=== PATIENT | male | born 1935 | race Caucasian/White ===

== ENCOUNTER 2020-02-25 09:22 | Inpatient (IN) | payer MEDICARE, BC, OTHER ==
[~2020-02-25] VITALS: Ht 180.3 cm; Wt 48.6 kg
[2020-02-25 09:58] LABS: BASO % 0.4 % (0.0-1.0); EOS % 0.1 % (0.0-3.0); HEMATOCRIT 33.9 % (42.0-52.0); LYMPH # 0.7 10^3/uL (1.5-5.0); LYMPH % 6.3 % (24.0-44.0); MEAN CORPUSCULAR HEMOGLOBIN 28.9 pg (27.0-33.0); MEAN CORPUSCULAR HGB CONC 32.4 g/dl (32.0-36.5); MEAN CORPUSCULAR VOLUME 89.2 fl (80.0-96.0); MONO # 0.7 10^3/uL (0.0-0.8); MONO % 6.2 % (0.0-5.0); NEUTROPHILS # 9.1 10^3/uL (1.5-8.5); NEUTROPHILS % 86.2 % (36.0-66.0); PLATELET COUNT, AUTOMATED 368 10^3/uL (150-450); WHITE BLOOD COUNT 10.6 10^3/uL (4.0-10.0)
[2020-02-25 10:10] LABS: VENOUS BASE EXCESS -1.7 (-2.0-2.0); VENOUS HCO3 25.3 MEQ/L (23.0-27.0); VENOUS O2 SATURATION 66.4 % (60.0-80.0); VENOUS PARTIAL PRESSURE CO2 53.1 mmHg (38.0-50.0); VENOUS PARTIAL PRESSURE O2 34.6 mmHg (30.0-50.0); VENOUS PH 7.296 UNITS (7.330-7.430); VENOUS STANDARD HCO3 22.4 MEQ/L; VENOUS TOTAL CO2 26.9 MEQ/L (24.0-28.0)
[2020-02-25 10:15] VITALS: BP 190/82
[2020-02-25] MEDS ORDERED: SERT-141 PO (10:16)
[2020-02-25] MEDS ORDERED: ASPI81TA26 PO (10:16)
[2020-02-25] MEDS ORDERED: VITA500C24 PO (10:16)
[2020-02-25] MEDS ORDERED: IRON65TA2 PO (10:16)
[2020-02-25] MEDS ORDERED: PANT40TA3 PO (10:16)
[2020-02-25] MEDS ORDERED: VITAD1000T PO (10:16)
[2020-02-25] MEDS ORDERED: FINA5TAB2 PO (10:16)
[2020-02-25] MEDS ORDERED: ANOR1AER PO (10:16)
[2020-02-25] MEDS ORDERED: MELA5CAP2 PO (10:16)
[2020-02-25] MEDS ORDERED: AMLO5TAB6 PO (10:16)
[2020-02-25 10:35] LABS: ALBUMIN 3.1 GM/DL (3.2-5.2); BILIRUBIN,DIRECT 0.2 MG/DL (0.0-0.2); BILIRUBIN,TOTAL 0.7 MG/DL (0.2-1.0); THYROID STIMULATING HORMONE 4.04 uIU/ML (0.358-3.740); TOTAL PROTEIN 6.3 GM/DL (6.4-8.2)
--- NOTE | 2020-02-25 11:20 | REP ---
Clinical: Cough and dyspnea. Comparison: None. Findings: Opacity at the right base suggests layering effusion. Trace atelectasis cannot be excluded. Diffuse underlying chronic interstitial changes are suggested. The cardiac silhouette is normal. Surgical clips overlie the superior mediastinum suggesting prior thyroid surgery as well as the upper abdomen suggesting prior gastric bypass surgery and hernia repair. Skeletal structures demonstrate osteopenia and degenerative changes. Impression: Suspected right pleural effusion and atelectasis. Electronically Signed by Jesus Wills MD 02/25/2020 11:11 A
[2020-02-25] MEDS ORDERED: ENOXAPARIN 30MG/0.3ML SYRINGE (J1650 PER 10MG) SC SCH (12:00)
[2020-02-25] MEDS ORDERED: amLODIPine 5 MG TAB PO ONE (12:00)
[2020-02-25] MEDS ORDERED: NS 1,000 ML IV SCH (12:00)
[2020-02-26] MEDS ORDERED: amLODIPine 5 MG TAB PO SCH (09:00)
[2020-02-26] MEDS ORDERED: PANTOPRAZOLE 40MG TAB (PROTONIX) PO SCH (09:00)
[2020-02-26] MEDS ORDERED: SERTRALINE HCL 50 MG TAB PO SCH (09:00)
[2020-02-26] MEDS ORDERED: FINASTERIDE 5 MG TAB PO SCH (09:00)
[2020-02-26] MEDS ORDERED: ASPIRIN 81 MG CHEW TABLET PO SCH (09:00)
[2020-02-26] MEDS ORDERED: ASCORBIC ACID 500 MG TAB PO SCH (09:00)
[2020-02-26] MEDS ORDERED: VITAMIN D 1,000 INTERNATIONAL UNITS TABLET PO SCH (09:00)
[2020-02-26] MEDS ORDERED: NON-FORMULARY 1 EA EA INH SCH (09:00)
[2020-02-27] MEDS ORDERED: HumaLOG INSULIN (NovoLOG) PER UNIT ONE ×2 (00:30→05:49)
[2020-02-27] MEDS ORDERED: UNASYN 3 GM VIAL ONE (02:00)
[2020-02-27] MEDS ORDERED: FERROUS SULFATE 325MG TAB ONE (08:23)
[2020-02-27] MEDS ORDERED: ENOXAPARIN 30MG/0.3ML SYRINGE (J1650 PER 10MG) ONE (08:23)
[2020-02-27] MEDS ORDERED: amLODIPine 5 MG TAB ONE (08:23)
[2020-02-27] MEDS ORDERED: PANTOPRAZOLE 40MG TAB (PROTONIX) ONE (08:23)
[2020-02-27] MEDS ORDERED: ASPIRIN 81 MG CHEW TABLET ONE (08:23)
[2020-02-27] MEDS ORDERED: SERTRALINE HCL 50 MG TAB ONE (08:23)
[2020-02-27] MEDS ORDERED: ASCORBIC ACID 500 MG TAB ONE (08:23)
[2020-02-27] MEDS ORDERED: VITAMIN D 1,000 INTERNATIONAL UNITS TABLET ONE (08:23)
[2020-02-27] MEDS ORDERED: atenoloL 25 MG TAB ONE (08:23)
[2020-02-27] MEDS ORDERED: ENOXAPARIN 30MG/0.3ML SYRINGE (J1650 PER 10MG) As Ordered ONE (08:23)
[2020-02-27] MEDS ORDERED: VITAMIN D 1,000 INTERNATIONAL UNITS TABLET As Ordered ONE (08:24)
[2020-02-27] MEDS ORDERED: FERROUS SULFATE 325MG TAB As Ordered ONE (08:25)
[2020-02-27] MEDS ORDERED: ASPIRIN 81 MG CHEW TABLET As Ordered ONE (08:25)
[2020-02-27] MEDS ORDERED: amLODIPine 5 MG TAB As Ordered ONE (08:26)
[2020-02-27] MEDS ORDERED: SERTRALINE HCL 50 MG TAB As Ordered ONE (08:26)
[2020-02-27] MEDS ORDERED: ASCORBIC ACID 500 MG TAB As Ordered ONE (08:26)
[2020-02-27] MEDS ORDERED: atenoloL 25 MG TAB As Ordered ONE ×2 (08:26→22:38)
[2020-02-27] MEDS ORDERED: PANTOPRAZOLE 40MG TAB (PROTONIX) As Ordered ONE (08:27)
[2020-02-27] MEDS ORDERED: POTASSIUM CHLORIDE 10 MEQ SR TABLET As Ordered ONE (12:36)
[2020-02-27] MEDS ORDERED: HumaLOG INSULIN (NovoLOG) PER UNIT As Ordered ONE ×2 (12:38→17:56)
[2020-02-27] MEDS ORDERED: **hydrALAZINE** 10 MG TAB As Ordered ONE ×2 (12:38→17:56)
[2020-02-27] MEDS ORDERED: D5W 100ML MINI-BAG PLUS As Ordered ONE (14:31)
[2020-02-27] MEDS ORDERED: UNASYN 3 GM VIAL As Ordered ONE (14:31)
[2020-02-27] MEDS ORDERED: FINASTERIDE 5 MG TAB As Ordered ONE (22:38)
[2020-02-27] MEDS ORDERED: ACETAMINOPHEN 325 MG TAB As Ordered ONE (22:45)
[2020-02-28] MEDS ORDERED: HumaLOG INSULIN (NovoLOG) PER UNIT As Ordered ONE ×2 (00:20→06:05)
[2020-02-28] MEDS ORDERED: D5W 100ML MINI-BAG PLUS As Ordered ONE ×2 (02:34→13:45)
[2020-02-28] MEDS ORDERED: **hydrALAZINE** 10 MG TAB As Ordered ONE ×4 (02:34→17:59)
[2020-02-28] MEDS ORDERED: UNASYN 3 GM VIAL As Ordered ONE ×2 (02:34→13:45)
[2020-02-28] MEDS ORDERED: VITAMIN D 1,000 INTERNATIONAL UNITS TABLET As Ordered ONE (08:55)
[2020-02-28] MEDS ORDERED: ENOXAPARIN 30MG/0.3ML SYRINGE (J1650 PER 10MG) As Ordered ONE (08:55)
[2020-02-28] MEDS ORDERED: FERROUS SULFATE 325MG TAB As Ordered ONE (08:56)
[2020-02-28] MEDS ORDERED: SERTRALINE HCL 50 MG TAB As Ordered ONE (08:56)
[2020-02-28] MEDS ORDERED: ASCORBIC ACID 500 MG TAB As Ordered ONE (08:56)
[2020-02-28] MEDS ORDERED: atenoloL 25 MG TAB As Ordered ONE ×2 (08:56→20:16)
[2020-02-28] MEDS ORDERED: ASPIRIN 81 MG CHEW TABLET As Ordered ONE (08:56)
[2020-02-28] MEDS ORDERED: amLODIPine 5 MG TAB As Ordered ONE (08:57)
[2020-02-28] MEDS ORDERED: PANTOPRAZOLE 40MG TAB (PROTONIX) As Ordered ONE (08:57)
[2020-02-28] MEDS ORDERED: POTASSIUM CHLORIDE 10 MEQ SR TABLET As Ordered ONE (11:56)
[2020-02-28] MEDS ORDERED: FINASTERIDE 5 MG TAB As Ordered ONE (20:16)
[2020-02-29] MEDS ORDERED: UNASYN 3 GM VIAL As Ordered ONE ×2 (02:27→12:28)
[2020-02-29] MEDS ORDERED: LACTOBACILLUS ACIDOPHILUS CAP (BACID) ONE (02:27)
[2020-02-29] MEDS ORDERED: UNASYN 3 GM VIAL ONE ×2 (02:27→08:58)
[2020-02-29] MEDS ORDERED: CLINDAMYCIN 150MG CAPSULE ONE (02:27)
[2020-02-29] MEDS ORDERED: FINASTERIDE 5 MG TAB ONE (02:27)
[2020-02-29] MEDS ORDERED: D5W 100ML MINI-BAG PLUS As Ordered ONE ×2 (02:27→12:28)
[2020-02-29] MEDS ORDERED: AUGMENTIN 875 MG TAB ONE (02:27)
[2020-02-29] MEDS ORDERED: **hydrALAZINE** 10 MG TAB ONE (02:27)
[2020-02-29] MEDS ORDERED: atenoloL 25 MG TAB ONE ×2 (02:27→08:58)
[2020-02-29] MEDS ORDERED: atenoloL 25 MG TAB As Ordered ONE ×3 (05:51→21:58)
[2020-02-29] MEDS ORDERED: **hydrALAZINE** 10 MG TAB As Ordered ONE (05:54)
[2020-02-29] MEDS ORDERED: VITAMIN D 1,000 INTERNATIONAL UNITS TABLET As Ordered ONE (08:58)
[2020-02-29] MEDS ORDERED: ASCORBIC ACID 500 MG TAB ONE (08:58)
[2020-02-29] MEDS ORDERED: PANTOPRAZOLE 40MG TAB (PROTONIX) ONE (08:58)
[2020-02-29] MEDS ORDERED: ASPIRIN 81 MG CHEW TABLET ONE (08:58)
[2020-02-29] MEDS ORDERED: FERROUS SULFATE 325MG TAB ONE (08:58)
[2020-02-29] MEDS ORDERED: PANTOPRAZOLE 40MG TAB (PROTONIX) As Ordered ONE (08:58)
[2020-02-29] MEDS ORDERED: POTASSIUM CHLORIDE 10 MEQ SR TABLET ONE (08:58)
[2020-02-29] MEDS ORDERED: SERTRALINE HCL 50 MG TAB ONE (08:58)
[2020-02-29] MEDS ORDERED: VITAMIN D 1,000 INTERNATIONAL UNITS TABLET ONE (08:58)
[2020-02-29] MEDS ORDERED: amLODIPine 5 MG TAB ONE (08:58)
[2020-02-29] MEDS ORDERED: SERTRALINE HCL 50 MG TAB As Ordered ONE (08:58)
[2020-02-29] MEDS ORDERED: FERROUS SULFATE 325MG TAB As Ordered ONE (08:58)
[2020-02-29] MEDS ORDERED: ASPIRIN 81 MG CHEW TABLET As Ordered ONE (08:58)
[2020-02-29] MEDS ORDERED: ENOXAPARIN 30MG/0.3ML SYRINGE (J1650 PER 10MG) ONE (08:58)
[2020-02-29] MEDS ORDERED: ASCORBIC ACID 500 MG TAB As Ordered ONE (08:59)
[2020-02-29] MEDS ORDERED: ENOXAPARIN 30MG/0.3ML SYRINGE (J1650 PER 10MG) As Ordered ONE (08:59)
[2020-02-29] MEDS ORDERED: amLODIPine 5 MG TAB As Ordered ONE (08:59)
[2020-02-29] MEDS ORDERED: POTASSIUM CHLORIDE 10 MEQ SR TABLET As Ordered ONE (12:28)
[2020-02-29] MEDS ORDERED: AUGMENTIN 875 MG TAB As Ordered ONE (21:57)
[2020-02-29] MEDS ORDERED: LACTOBACILLUS ACIDOPHILUS CAP (BACID) As Ordered ONE (21:57)
[2020-02-29] MEDS ORDERED: FINASTERIDE 5 MG TAB As Ordered ONE (21:58)
[2020-02-29] MEDS ORDERED: CLINDAMYCIN 150MG CAPSULE As Ordered ONE (21:58)
[2020-03-01] MEDS ORDERED: CLINDAMYCIN 150MG CAPSULE As Ordered ONE ×4 (03:58→20:29)
[2020-03-01] MEDS ORDERED: **hydrALAZINE** 10 MG TAB As Ordered ONE ×4 (05:25→23:48)
[2020-03-01] MEDS ORDERED: ENOXAPARIN 30MG/0.3ML SYRINGE (J1650 PER 10MG) As Ordered ONE (09:28)
[2020-03-01] MEDS ORDERED: SENOKOT S TAB As Ordered ONE (09:28)
[2020-03-01] MEDS ORDERED: VITAMIN D 1,000 INTERNATIONAL UNITS TABLET As Ordered ONE (09:28)
[2020-03-01] MEDS ORDERED: LACTOBACILLUS ACIDOPHILUS CAP (BACID) As Ordered ONE ×4 (09:29→20:28)
[2020-03-01] MEDS ORDERED: ASPIRIN 81 MG CHEW TABLET As Ordered ONE (09:29)
[2020-03-01] MEDS ORDERED: SERTRALINE HCL 50 MG TAB As Ordered ONE (09:29)
[2020-03-01] MEDS ORDERED: FERROUS SULFATE 325MG TAB As Ordered ONE (09:29)
[2020-03-01] MEDS ORDERED: AUGMENTIN 875 MG TAB As Ordered ONE ×2 (09:29→20:28)
[2020-03-01] MEDS ORDERED: amLODIPine 5 MG TAB As Ordered ONE (09:30)
[2020-03-01] MEDS ORDERED: PANTOPRAZOLE 40MG TAB (PROTONIX) As Ordered ONE (09:30)
[2020-03-01] MEDS ORDERED: atenoloL 25 MG TAB As Ordered ONE ×2 (09:30→20:29)
[2020-03-01] MEDS ORDERED: BISACODYL 5 MG TAB As Ordered ONE (09:30)
[2020-03-01] MEDS ORDERED: ASCORBIC ACID 500 MG TAB As Ordered ONE (09:30)
[2020-03-01] MEDS ORDERED: ACETAMINOPHEN TAB 650MG DOSE (2X325MG) As Ordered ONE (11:12)
[2020-03-01] MEDS ORDERED: POTASSIUM CHLORIDE 10 MEQ SR TABLET As Ordered ONE (12:21)
[2020-03-01] MEDS ORDERED: SALMETEROL DISKUS 50MCG INHALER (SEREVENT) ONE (18:33)
[2020-03-01] MEDS ORDERED: FINASTERIDE 5 MG TAB As Ordered ONE (20:28)
[2020-03-01] MEDS ORDERED: ACETAMINOPHEN 325 MG TAB As Ordered ONE (20:29)
[2020-03-02] MEDS ORDERED: CLINDAMYCIN 150MG CAPSULE As Ordered ONE ×3 (03:20→14:57)
[2020-03-02] MEDS ORDERED: VITAMIN D 1,000 INTERNATIONAL UNITS TABLET As Ordered ONE (08:40)
[2020-03-02] MEDS ORDERED: AUGMENTIN 875 MG TAB As Ordered ONE (08:40)
[2020-03-02] MEDS ORDERED: VITAMIN D 1,000 INTERNATIONAL UNITS TABLET ONE (08:40)
[2020-03-02] MEDS ORDERED: SERTRALINE HCL 50 MG TAB ONE (08:40)
[2020-03-02] MEDS ORDERED: LACTOBACILLUS ACIDOPHILUS CAP (BACID) As Ordered ONE ×2 (08:40→12:18)
[2020-03-02] MEDS ORDERED: ENOXAPARIN 30MG/0.3ML SYRINGE (J1650 PER 10MG) ONE (08:40)
[2020-03-02] MEDS ORDERED: ENOXAPARIN 30MG/0.3ML SYRINGE (J1650 PER 10MG) As Ordered ONE (08:40)
[2020-03-02] MEDS ORDERED: FERROUS SULFATE 325MG TAB As Ordered ONE (08:40)
[2020-03-02] MEDS ORDERED: LACTOBACILLUS ACIDOPHILUS CAP (BACID) ONE (08:40)
[2020-03-02] MEDS ORDERED: SERTRALINE HCL 50 MG TAB As Ordered ONE (08:40)
[2020-03-02] MEDS ORDERED: AUGMENTIN 875 MG TAB ONE (08:40)
[2020-03-02] MEDS ORDERED: CLINDAMYCIN 150MG CAPSULE ONE ×2 (08:40→08:41)
[2020-03-02] MEDS ORDERED: FERROUS SULFATE 325MG TAB ONE (08:40)
[2020-03-02] MEDS ORDERED: ASCORBIC ACID 500 MG TAB As Ordered ONE (08:41)
[2020-03-02] MEDS ORDERED: amLODIPine 5 MG TAB As Ordered ONE (08:41)
[2020-03-02] MEDS ORDERED: atenoloL 25 MG TAB As Ordered ONE (08:41)
[2020-03-02] MEDS ORDERED: amLODIPine 5 MG TAB ONE (08:41)
[2020-03-02] MEDS ORDERED: ASCORBIC ACID 500 MG TAB ONE (08:41)
[2020-03-02] MEDS ORDERED: PANTOPRAZOLE 40MG TAB (PROTONIX) ONE (08:41)
[2020-03-02] MEDS ORDERED: atenoloL 25 MG TAB ONE (08:41)
[2020-03-02] MEDS ORDERED: PANTOPRAZOLE 40MG TAB (PROTONIX) As Ordered ONE (08:41)
[2020-03-02] MEDS ORDERED: ASPIRIN 81 MG CHEW TABLET As Ordered ONE (09:04)
[2020-03-02] MEDS ORDERED: ACETAMINOPHEN 325 MG TAB As Ordered ONE ×2 (09:04→14:54)
[2020-03-02] MEDS ORDERED: POTASSIUM CHLORIDE 10 MEQ SR TABLET As Ordered ONE (12:19)
[2020-03-02] MEDS ORDERED: **hydrALAZINE** 10 MG TAB As Ordered ONE (12:19)
[2020-04-06 10:42] LABS: HEMATOCRIT 30.7 % (42.0-52.0); HEMOGLOBIN 10.2 g/dl (13.5-17.5); MEAN CORPUSCULAR HEMOGLOBIN 29.4 pg (27.0-33.0); MEAN CORPUSCULAR HGB CONC 33.2 g/dl (32.0-36.5); MEAN CORPUSCULAR VOLUME 88.5 fl (80.0-96.0); PLATELET COUNT, AUTOMATED 250 10^3/uL (150-450); RED BLOOD COUNT 3.47 10^6/uL (4.30-6.10); WHITE BLOOD COUNT 11.9 10^3/uL (4.0-10.0)
[2020-04-06 13:15] LABS: BASO % 0.1 % (0.0-1.0); EOS % 0.4 % (0.0-3.0); HEMATOCRIT 30.3 % (42.0-52.0); HEMOGLOBIN 9.8 g/dl (13.5-17.5); LYMPH # 0.4 10^3/uL (1.5-5.0); LYMPH % 5.7 % (24.0-44.0); MEAN CORPUSCULAR HEMOGLOBIN 28.8 pg (27.0-33.0); MEAN CORPUSCULAR HGB CONC 32.3 g/dl (32.0-36.5); MEAN CORPUSCULAR VOLUME 89.1 fl (80.0-96.0); MONO # 0.7 10^3/uL (0.0-0.8); MONO % 9.7 % (0.0-5.0); NEUTROPHILS # 5.8 10^3/uL (1.5-8.5); NEUTROPHILS % 83.2 % (36.0-66.0); PLATELET COUNT, AUTOMATED 208 10^3/uL (150-450)
== END 2020-03-02 20:20 | DRG 640 ==
LOC: EDSEX 09:22 → M ED 09:22 → EDBD 09:22 → M ED INP 11:52 → M MSPAV 12:30
PROVIDERS: ADMIT General Practice; ATTEND General Practice
PROC: 02HV33Z Insertion of Infusion Device into Superior Vena Cava, Percutaneous Approach (ICD-10-PCS; principal; 2020-02-26)
DX: R62.7 Adult failure to thrive (principal); E43 Unspecified severe protein-calorie malnutrition; J69.0 Pneumonitis due to inhalation of food and vomit; N18.4 Chronic kidney disease, stage 4 (severe); E87.0 Hyperosmolality and hypernatremia; J44.9 Chronic obstructive pulmonary disease, unspecified; F17.200 Nicotine dependence, unspecified, uncomplicated; Z85.118 Personal history of other malignant neoplasm of bronchus and lung; Z85.01 Personal history of malignant neoplasm of esophagus; K91.1 Postgastric surgery syndromes; I50.9 Heart failure, unspecified